=== PATIENT | female | born 1990 | race Caucasian/White ===

== ENCOUNTER 2017-12-12 13:27 | Emergency (ER) | payer OTHER ==
[2017-12-12 13:40] VITALS: RESP 18
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
--- NOTE | 2017-12-12 14:47 | XR ---
EXAMINATION TYPE: XR chest 2V DATE OF EXAM: 12/12/2017 COMPARISON: NONE TECHNIQUE: PA and lateral views submitted. HISTORY: Pain FINDINGS: The lungs are clear and there is no pneumothorax, pleural effusion, or focal pneumonia. Remote trau ma to the left clavicle. Deformity of the left lateral rib cage appears likely chronic. IMPRESSION: 1. No acute process.
--- NOTE | 2017-12-12 14:48 | XR ---
EXAMINATION TYPE: XR thoracic spine 2V DATE OF EXAM: 12/12/2017 COMPARISON: NONE HISTORY: Pain Alignment is anatomic. There is no compression deformities. Vertebral body height and disc interspa brenden are maintained. Curvature the spine noted. Chronic appearing deformity of the anterior margin fi rst rib. IMPRESSION: 1. No acute abnormality.
[2017-12-12 14:57] VITALS: BP 113/65; PULSE 65; TEMP 98
== END 2017-12-12 15:07 | disposition home or self-care (01) ==
LOC: EC 13:27
DX: M54.6 Pain in thoracic spine (principal)
CPT/HCPCS: 71046; 72070; 99283

== ENCOUNTER 2018-10-13 22:48 | Outpatient (CLI) | payer BC ==
[2018-10-13 23:52] VITALS: BP 128/79; PULSE 71; RESP 15; TEMP 97.3
--- NOTE | 2018-11-04 09:03 | P.MSEPDOC ---
Presenting Problems - Arrival Data Date of Arrival on Unit: 10/13/18 Time of Arrival on Unit: 22:48 Mode of Transport: Ambulatory - Complaint OB-Reason for Admission/Chief Complaint: Possible Onset of Labor Comment: Pt states she has been magnolia all day Medical History - Information : 1 Para: 0 Term: 0 : 0 Abortions: Spontaneous or Elective: 0 Number of Living Children: 0 - Gestational Age Gestational Age by NINFA (wks/days): 40 Weeks and 0 Days Review of Systems - Review of Systems Constitutional: No problems Breast: No problems ENT: No problems Cardiovascular: No problems Respiratory: No problems Gastrointestinal: No problems Genitourinary: No problems Musculoskeletal: No problems Neurological: No problems Skin: No problems Vital Signs - Temperature Temperature: 97.3 F Temperature Source: Temporal Artery Scan - Pulse Pulse Oximetery Pulse Rate: 71 Pulse Assessment Method: Automatic Cuff - Respirations Respiratory Rate: 15 Oxygen Delivery Method: Room Air O2 Sat by Pulse Oximetry: 96 - Blood Pressure Right Arm Blood Pressure: 128/79 Blood Pressure Mean: 95 Blood Pressure Source: Automatic Cuff Medical Screen Scoring (Pre) - Cervical Exam Dilation: 1-3 cm = 1 Membranes: Intact - Uterine Contractions Frequency: > 5 minutes apart = 1 Duration: N/A Intensity: N/A - Maternal Vital Signs Maternal Temperature: N/A Maternal Blood Pressure: N/A Signs of Preeclampsia: N/A Maternal Respirations: N/A - Maternal Trauma Maternal Trauma: N/A - Assessment - Baby A Baseline FHR: 120 Heart Rate - NICHD Category: Category I (Normal) = 0 NST: Reactive Position: N/A Station: N/A - Total Score - Baby A Total Score - Baby A: 2 - Total Score - Baby B Total Score - Baby B: 2 - Total Score - Baby C Total Score - Baby C: 2 - Level of Risk - Baby A Level of Risk - Baby A: Low (0-5) - Level of Risk - Baby B Level of Risk - Baby B: Low (0-5) - Level of Risk - Baby C Level of Risk - Baby C: Low (0-5) Physician Notification (Pre) - Physician Notified Physician Notified Date: 10/13/18 Physician Notified Time: 23:39 Physician/Practitioner Notifed:: Dr Barlow New Order Received: Yes Disposition - Disposition OB Disposition: Discharge to home Discharge Date: 10/13/18 Discharge Time: 23:45 I agree with the RN Medical Screening Exam: Yes Risk & Benefit of care provided described in d/c instruction: Yes Diagnosis: FALSE LABOR AT OR AFTER 37 COMPLETED WEEKS OF GESTATION
== END 2018-10-13 23:45 | disposition home or self-care (01) ==
LOC: FBPOP 22:48
PROVIDERS: ATTEND Obstetrics & Gynecology Obstetrics
DX: O47.1 False labor at or after 37 completed weeks of gestation (principal); Z3A.40 40 weeks gestation of pregnancy
CPT/HCPCS: 59025; 99213

== ENCOUNTER 2018-10-14 08:23 | Inpatient (IN) | payer BC ==
[2018-10-14] MEDS ORDERED: TERBUTALINE 1 MG/ML VIAL SQ PRN (11:14)
[2018-10-14] MEDS ORDERED: LIDOCAINE 0.5% (PF) 5 MG/ML (50 ML SDV) SQ PRN (11:14)
[2018-10-14] MEDS ORDERED: METHYLERGONOVINE 0.2 MG/ML 1 ML AMP IM PRN (11:14)
[2018-10-14] MEDS ORDERED: OXYTOCIN 10 UNIT/ML 1 ML VIAL IM PRN (11:14)
[2018-10-14] MEDS ORDERED: CARBOPROST TROMETHAMINE 250 MCG/ML 1 ML AMP IM PRN (11:14)
[2018-10-14] MEDS: LACTATED RINGERS 1,000 ML IV SCH ×3 (11:50→20:17)
[2018-10-14 11:52] LABS: Anisocytosis Slight; Basophils # (A) 0.1 k/uL (0-0.2); Basophils % (A) 0 %; Eosinophils # (A) 0.1 k/uL (0-0.7); Eosinophils % (A) 1 %; HCT 35.8 % (34.0-46.0); HGB 11.6 gm/dL (11.4-16.0); Hypochromasia Slight; Lymphocytes # (A) 2.9 k/uL (1.0-4.8); Lymphocytes % (A) 15 %; MCH 25.9 pg (25.0-35.0); MCHC 32.5 g/dL (31.0-37.0); MCV 79.6 fL (80.0-100.0); Mean Platelet Volume 9.6; Monocytes # (A) 0.9 k/uL (0-1.0); Monocytes % (A) 5 %; Neutrophils # (A) 14.5 k/uL (1.3-7.7); Neutrophils % (A) 77 %; Platelet Count 264 k/uL (150-450); RDW 16.4 % (11.5-15.5); WBC 18.9 k/uL (3.8-10.6)
[2018-10-14 12:07] VITALS: BMI 35.9
--- NOTE | 2018-10-14 12:39 | P.HPOB ---
History of Present Illness H&P Date: 10/14/18 Chief Complaint: Contractions for 24 hours This is a 28 year old 1 para 0 woman with an estimated due date of 10/13/2018 2 presents to labor and delivery triage with approximately 24 hours of painful contractions. She was evaluated throughout the night with contract ions however did not change her cervix therefore was discharged home. She really presents this morning with worsening complaints of contractions. She was 1 cm dilated at approximately 10 PM yesterday and progressed to 2+ centimeters over a couple of hours of observation here. She lives greater than 1 hour away and was extremely hesitant to be discharged. She is therefore admitted for management of latent labor possible early active labor and pain control. Her has been otherwise uncomplicated. She is known group B strep positive. Blood type O+, antibody screen negative, rubella immune, VDRL nonreactive, hepatitis B surface antigen negative, HIV negative, gonorrhea and clinic cultures negative, glucose tolerance testing within normal limits. Review of Systems All systems: negative Past Medical History Past Medical History: No Reported History Additional Past Medical History / Comment(s): heart murmur, clavicle fx. History of Any Multi-Drug Resistant Organisms: None Reported Past Surgical History: No Surgical Hx Reported Additional Past Surgical History / Comment(s): plate in jaw. (R) thumb surgery. Past Anesthesia/Blood Transfusion Reactions: No Reported Reaction Past Psychological History: No Psychological Hx Reported Smoking Status: Never smoker Past Alcohol Use History: None Reported Past Drug Use History: None Reported - Past Family History Father Family Medical History: GERD/Reflux, Hyperlipidemia, Hypertension Medications and Allergies Home Medications Medication Instructions Recorded Confirmed Type Lansoprazole [Prevacid] 30 mg PO DAILY 10/13/18 10/14/18 History Pnv No.95/Ferrous Fum/Folic AC 1 each PO DAILY 10/13/18 10/14/18 History [ Multivitamin Tablet] Allergies Allergy/AdvReac Type Severity Reaction Status Date / Time No Known Allergies Allergy Verified 10/14/18 08:35 Exam Vital Signs Temp Pulse Resp BP 10/14/18 10:21 97.9 F 82 16 129/78 Intake and Output 10/13/18 10/14/18 10/14/18 22:59 06:59 14:59 Other: Weight 110.223 kg This is a somewhat uncomfortable appearing, visibly gravid female. On cervical exam the cervix is 2 cm dilated 70% effaced and the vertex is in the -3 station. Cervix is posterior. There is some bloody show noted. heart tones are category 1 by external monitoring. She appears to be magnolia irregularly every 2-5 minutes. Results Result Diagrams: 10/14/18 11:40 Abnormal Lab Results - Last 24 Hours (Table) 10/14/18 Range/Units 11:40 WBC 18.9 H (3.8-10.6) k/uL MCV 79.6 L (80.0-100.0) fL RDW 16.4 H (11.5-15.5) % Neutrophils # 14.5 H (1.3-7.7) k/uL Assessment and Plan (1) 40 weeks gestation of Current Visit: Yes Status: Acute Code(s): Z3A.40 - 40 WEEKS GESTATION OF SNOMED Code(s): 37455860 (2) Labor, prolonged latent phase Current Visit: Yes Status: Acute Code(s): O62.0 - PRIMARY INADEQUATE CONTRACTIONS SNOMED Code(s): 085107474 (3) GBS (group B Streptococcus carrier), +RV culture, currently Current Visit: Yes Status: Acute Code(s): O99.820 - STREPTOCOCCUS B CARRIER STATE COMPLICATING SNOMED Code(s): 0693789611276 Plan: This is a 28-year-old 1 para 0 woman at 40 and one sevenths weeks gestation with prolonged latent labor. status is currently reassuring by external monitoring. Maternal vital signs are stable. She lives greater than 1 hour from the hospital. She has had minimal cervical warp changer the last several hours however is uncomfortable with contractions. I have recommended Stadol analgesia, fluid rehydration and rest. Should she advance into active labor or have rupture of membranes group B strep prophylactic antibiotics will be initiated. I discussed with the patient and her significant other the reasoning behind the plan. I do not believe intervention or induction of labor is indicated at this time and may potentially increase her risk of primary section. The patient understands and agrees with the plan.
[2018-10-14] MEDS: BUTORPHANOL 1 MG/ML 1 ML VIAL IV PRN ×2 (12:45→16:59)
--- NOTE | 2018-10-14 17:03 | P.PN ---
Progress Note - Text Progress Note Date: 10/14/18 Patient still irregularly magnolia every 2-7 minutes. She complains mainly of hip and back pain. heart tones are currently category 1. Pelvic examination reveals cervix 3 cm dilated, 50% effaced vertex in the -3 station, posterior. We discussed ongoing nonintervention. She and her family declined being discharged home for further expectant management. Should she have spontaneous rupture of membranes or active cervical change group B strep prophylactic antibiotics will be initiated. Continue expectant management.
[2018-10-14] MEDS ORDERED: fentaNYL (PF) 50 MCG/ML 5 ML AMP ONE (19:42)
[2018-10-14] MEDS ORDERED: SODIUM CHLORIDE 0.9% 100 ML BAG ONE (19:42)
[2018-10-14] MEDS ORDERED: ROPIVACAINE 5MG/ML 20ML VIAL ONE (19:42)
[2018-10-14] MEDS: PENICILLIN G POTASSIUM 5,000,000 UNIT in DEXTROSE 5% IN WATER 100 ML IVPB STA ×4 (20:12→20:13)
[2018-10-14] MEDS: PENICILLIN G POTASSIUM 2,500,000 UNIT in DEXTROSE 5% IN WATER 100 ML IVPB SCH ×2 (20:17)
[2018-10-15] MEDS: LACTATED RINGERS 1,000 ML IV SCH (05:03)
[2018-10-15] MEDS: PENICILLIN G POTASSIUM 2,500,000 UNIT in DEXTROSE 5% IN WATER 100 ML IVPB SCH ×4 (05:03→08:43)
[2018-10-15] MEDS ORDERED: WITCH HAZEL 1 EACH MED..PAD TOPICAL PRN (07:18)
[2018-10-15] MEDS ORDERED: LANOLIN CREAM 5 GM TUBE TOPICAL PRN (07:18)
[2018-10-15] MEDS ORDERED: diphenhydrAMINE 50 MG CAP PO PRN (07:18)
[2018-10-15] MEDS ORDERED: ACETAMINOPHEN TAB 325 MG TAB PO PRN (07:18)
[2018-10-15] MEDS ORDERED: ZOLPIDEM 5 MG TAB PO PRN (07:18)
[2018-10-15] MEDS ORDERED: BENZOCAINE/MENTHOL SPRAY 1 GM/SPRAY AEROSOL TOPICAL PRN (07:18)
[2018-10-15] MEDS ORDERED: diphenhydrAMINE 25 MG CAP PO PRN (07:18)
[2018-10-15] MEDS ORDERED: SIMETHICONE 80 MG CHEWABLE PO PRN (07:18)
[2018-10-15] MEDS ORDERED: diphenhydrAMINE 50 MG/ML 1 ML VIAL IVP PRN ×2 (07:18)
[2018-10-15] MEDS ORDERED: HYDROCORTISONE 2.5% RECTAL CREAM 30 GM TUBE RECTAL PRN (07:18)
[2018-10-15] MEDS ORDERED: OXYTOCIN 20 UNITS/1000 ML NS 1,000 ML IV SCH (07:30)
[2018-10-15] MEDS: IBUPROFEN 600 MG TAB PO PRN ×3 (07:39→22:40)
[2018-10-15] MEDS: SENNOSIDES-DOCUSATE SODIUM 1 EACH TAB PO SCH ×2 (07:39→22:40)
--- NOTE | 2018-10-15 08:09 | P.PROBDLV ---
Vaginal Delivery Note - . Vaginal Delivery Note: This is a 28-year-old white female 1 para 0 EDC 10/13/2018 at 40-2/7 weeks' gestation. Patient presented with spontaneous regular uterine contractions, in early labor yesterday. She was admitted through the night. Vital signs were stable. Blood type O positive, rubella status immune, group B strep cultures positive. Please see admitting history and physical for details. Through the night spontaneous amniorrhexis occurred with clear fluid. Epidural was requested and placed. She became completely dilated at 0649 hours. Perineal body was prepped and draped in usual sterile fashion. With excellent maternal expulsive efforts infant's head delivered occiput anterior and she restituted accordingly. There was a nuchal cord 1 that was reduced on the perineal body. The anterior or right shoulder was easily delivered from underneath the pubic symphysis at which time the oropharynx, nasopharynx, and external nares were bulb suctioned on the perineal body. Patient was officially delivered of a liveborn female at 0659 hours. Umbilical cord was doubly clamped and ligated, she was handed to waiting nurses for evaluation where scores of 9 and 9 at one and 5 minutes respectively were given. Placenta delivered spontaneously, it was inspected and noted to be intact with trivascular cord at 0703 hrs. Uterus is massaged. Inspection of cervix, vagina, perineum, periurethral, and perirectal areas revealed a small first- degree perineal laceration. This was easily repaired in the usual fashion using 3-0 Vicryl suture. Total estimated blood loss 250 mL's. Infant weighs 7 lbs. 10 oz. or 3455 g. Patient and her family are allowed to begin the bonding experience in the LDR.
[2018-10-15 21:03] VITALS: RESP 16
--- NOTE | 2018-10-16 07:44 | P.DS ---
Providers Date of admission: 10/14/18 11:10 Expected date of discharge: 10/16/18 Attending physician: Marilou Huang Primary care physician: Stated None Hospital Course: This is a 28-year-old white female 1 para 0 EDC 10/13/2018 at 40-2/7 weeks' gestation. Patient presented in early labor. Her course was significant for positive group B strep cultures, rubella status immune, blood type O positive. Please see admitting history and physical for details. Patient progressed slowly through the first stage of labor, spontaneous amniorrhexis occurred for clear fluid. She received an epidural per her request. She went on to vaginally deliver a liveborn female with scores of 9 and 9 at one and 5 minutes respectively. There was an estimated blood loss recorded of 250 mL's. There was a nuchal cord 1. Infant weighed 7 lbs. 10 oz. or 3455 g. There was a small second-degree spontaneous laceration easily repaired. Please see dictated delivery note for details. This morning the patient is doing well. She is voiding, and bleeding and passing flatus without difficulty. Vital signs are stable and she is afebrile. Fundus is firm and in the midline, symmetric and 18 week size. Extremities are negative for edema. Chest is clear in all webster. infant is doing well. Patient is judged to be in very good condition for discharge home. We have discussed options for contraception. She is reminded no intercourse tampons or douching. She will use [id number] Advil or Aleve, or ibuprofen as needed for pain. I've asked her to call me with any fevers shakes or chills, foul smelling or copious lochia, with the passage of large blood clots, with any pain not alleviated by [id number] products, or indeed with any concerns. infant will follow-up with chief drafter as per recommendations. Patient Condition at Discharge: Good Plan - Discharge Summary Discharge Rx Participant: No New Discharge Prescriptions: No Action Lansoprazole [Prevacid] 30 mg PO DAILY Pnv No.95/Ferrous Fum/Folic AC [ Multivitamin Tablet] 1 each PO DAILY Discharge Medication List Lansoprazole [Prevacid] 30 mg PO DAILY 10/13/18 [History] Pnv No.95/Ferrous Fum/Folic AC [ Multivitamin Tablet] 1 each PO DAILY 10/13/18 [History] Follow up Appointment(s)/Referral(s): Marilou Huang MD [STAFF PHYSICIAN] - 6 Weeks
[2018-10-16] MEDS: SENNOSIDES-DOCUSATE SODIUM 1 EACH TAB PO SCH ×2 (08:43→20:50)
[2018-10-16 09:43] LABS: Anisocytosis Slight; Basophils # (A) 0.1 k/uL (0-0.2); Basophils % (A) 0 %; Eosinophils # (A) 0.2 k/uL (0-0.7); Eosinophils % (A) 1 %; HCT 29.4 % (34.0-46.0); Hypochromasia Moderate; Lymphocytes # (A) 3.1 k/uL (1.0-4.8); Lymphocytes % (A) 14 %; MCH 26.1 pg (25.0-35.0); MCHC 32.1 g/dL (31.0-37.0); MCV 81.2 fL (80.0-100.0); Mean Platelet Volume 9.9; Monocytes # (A) 0.6 k/uL (0-1.0); Monocytes % (A) 3 %; Neutrophils # (A) 17.9 k/uL (1.3-7.7); Neutrophils % (A) 81 %; Platelet Count 209 k/uL (150-450); RBC 3.62 m/uL (3.80-5.40); WBC 22.1 k/uL (3.8-10.6)
[2018-10-16 09:47] LABS: HGB 9.5 gm/dL (11.4-16.0)
[2018-10-16] MEDS: IBUPROFEN 600 MG TAB PO PRN ×2 (15:11→20:49)
[2018-10-17] MEDS: IBUPROFEN 600 MG TAB PO PRN ×2 (08:03→14:41)
[2018-10-17] MEDS: SENNOSIDES-DOCUSATE SODIUM 1 EACH TAB PO SCH (08:04)
[2018-10-17 08:23] VITALS: BP 116/67; PULSE 71; TEMP 98.2
== END 2018-10-17 16:15 | disposition home or self-care (01) | DRG 807 ==
LOC: FBPOP 08:23 → 4FBP 11:10
PROVIDERS: ADMIT Obstetrics & Gynecology; ATTEND Obstetrics & Gynecology
PROC: 10E0XZZ Delivery of Products of Conception, External Approach (ICD-10-PCS; principal; 2018-10-15)
PROC: 0KQM0ZZ Repair Perineum Muscle, Open Approach (ICD-10-PCS; 2018-10-15)
DX: O69.81X0 Labor and delivery complicated by cord around neck, without compression, not applicable or unspecified (principal); Z37.0 Single live birth; O63.0 Prolonged first stage (of labor); O70.1 Second degree perineal laceration during delivery; O99.824 Streptococcus B carrier state complicating childbirth; O75.89 Other specified complications of labor and delivery; R01.1 Cardiac murmur, unspecified; K21.9 Gastro-esophageal reflux disease without esophagitis; O99.62 Diseases of the digestive system complicating childbirth; Z3A.40 40 weeks gestation of pregnancy; Z75.3 Unavailability and inaccessibility of health-care facilities; Z82.49 Family history of ischemic heart disease and other diseases of the circulatory system; Z83.79 Family history of other diseases of the digestive system
CPT/HCPCS: 59025; 84112; 85025; 86850; 86900; 86901; 99213

== ENCOUNTER 2020-07-20 21:59 | Emergency (ER) | payer BC ==
--- NOTE | 2020-07-21 01:22 | ED ---
General Adult HPI - General Chief complaint: Shortness of Breath Stated complaint: SOB,Chest Pain Time Seen by Provider: 07/21/20 01:19 Source: patient, RN notes reviewed Mode of arrival: wheelchair Limitations: no limitations - History of Present Illness Initial comments: Patient is a 29-year-old female that is 20 weeks that presents to emergency department complaining of shortness of breath. She notes she was sent by her primary care doctor to get her baby checked out. She notes that she's had shortness of breath was worried about upon and wasn't. Patient was well- appearing while sitting in wheelchair in no apparent distress or pain. She did have a mild cough but no other symptoms or complaints. She denied any chest pain headache nausea vomiting diarrhea constipation fever fatigue chills. - Related Data Home Medications Medication Instructions Recorded Confirmed Lansoprazole [Prevacid] 30 mg PO DAILY 10/13/18 10/14/18 Pnv No.95/Ferrous Fum/Folic AC 1 each PO DAILY 10/13/18 10/14/18 [ Multivitamin Tablet] Allergies Allergy/AdvReac Type Severity Reaction Status Date / Time nickel Allergy Intermediate Rash/Hives Verified 07/20/20 22:23 Review of Systems ROS Statement: Those systems with pertinent positive or pertinent negative responses have been documented in the HPI. ROS Other: All systems not noted in ROS Statement are negative. Past Medical History Past Medical History: No Reported History Additional Past Medical History / Comment(s): heart murmur, clavicle fx. History of Any Multi-Drug Resistant Organisms: None Reported Past Surgical History: Orthopedic Surgery Additional Past Surgical History / Comment(s): plate in jaw. (R) thumb surgery. Past Anesthesia/Blood Transfusion Reactions: No Reported Reaction Past Psychological History: No Psychological Hx Reported Smoking Status: Never smoker Past Alcohol Use History: None Reported Past Drug Use History: None Reported - Past Family History Father Family Medical History: GERD/Reflux, Hyperlipidemia, Hypertension General Exam Limitations: no limitations General appearance: alert, in no apparent distress Head exam: Present: atraumatic, normocephalic, normal inspection Eye exam: Present: normal appearance, PERRL, EOMI. Absent: scleral icterus, conjunctival injection, periorbital swelling Neck exam: Present: normal inspection. Absent: tenderness, meningismus, lymphadenopathy Respiratory exam: Present: normal lung sounds bilaterally. Absent: respiratory distress, wheezes, rales, rhonchi, stridor Cardiovascular Exam: Present: regular rate, normal rhythm, normal heart sounds. Absent: systolic murmur, diastolic murmur, rubs, gallop, clicks GI/Abdominal exam: Present: soft, normal bowel sounds. Absent: distended, tenderness, guarding, rebound, rigid Extremities exam: Present: normal inspection, full ROM, normal capillary refill. Absent: tenderness, pedal edema, joint swelling, calf tenderness Neurological exam: Present: alert, oriented X3, CN II-XII intact Psychiatric exam: Present: normal affect, normal mood Skin exam: Present: warm, dry, intact, normal color. Absent: rash Course Vital Signs 07/20/20 22:17 Temperature 98.8 F Pulse Rate 91 Respiratory 22 Rate Blood Pressure 114/73 O2 Sat by Pulse 97 Oximetry Medical Decision Making - Medical Decision Making 21-year-old female who is 20 weeks complaining of shortness of breath worried about possible pulmonary wasn't. Covid test ordered and was negative. Chest x-ray was ordered but patient declined due to radiation exposure to baby. Patient declined any other testing including heart sounds because she has hour drive home and follows up with Dr. Huang in a couple days. Case discussed with Dr. Gustafson, she can discharge home with follow-up to TECHN[facility] PROJECT LE[facility]. - Lab Data Lab Results 07/20/20 Range/Units 22:28 Coronavirus (PCR) Not Detected (Not Detectd) Disposition Clinical Impression: Upper respiratory tract infection Disposition: HOME SELF-CARE Condition: Stable Instructions (If sedation given, give patient instructions): Upper Respiratory Infection (ED) Additional Instructions: Please return to the Emergency Department if symptoms worsen or any other concerns. Follow-up with [facility] PROJECT LE[facility] as planned. Can take Tylenol for any fevers or muscle aches. Drink plenty of fluids rest. Is patient prescribed a controlled substance at d/c from ED?: No Referrals: None,Stated [Primary Care Provider] - 1-2 days Time of Disposition: 01:22
[2020-07-21 01:54] VITALS: BP 132/65; PULSE 88; RESP 20; TEMP 98.2
== END 2020-07-21 01:40 | disposition home or self-care (01) ==
LOC: EC 21:59
DX: O99.512 Diseases of the respiratory system complicating pregnancy, second trimester (principal); J06.9 Acute upper respiratory infection, unspecified; Z20.822 Contact with and (suspected) exposure to COVID-19; Z3A.20 20 weeks gestation of pregnancy
CPT/HCPCS: 87635; 93005; 99285

== ENCOUNTER 2020-09-07 14:46 | Outpatient (CLI) | payer BC ==
[2020-09-07 15:28] LABS: Appearance,Urine Cloudy (Clear); Bacteria,Urine Rare /hpf; Bilirubin,Urine 1+ (Negative); Blood,Urine Negative (Negative); Color,Urine Yellow; Glucose,Urine (UA) Negative (Negative); Ketones,Urine Trace (Negative); Leukocyte Esterase,Urine Negative (Negative); Mucus,Urine Many /hpf; Nitrite,Urine Negative (Negative); Protein,Urine 2+ (Negative); RBC,Urine 2 /hpf (0-5); Squamous Epithelial Cell,Urine 13 /hpf (0-4); WBC,Urine 3 /hpf (0-5)
[2020-09-07 15:37] LABS: Specific Gravity,Urine 1.047 (1.001-1.035)
[2020-09-07 16:22] VITALS: BP 121/67; PULSE 78; RESP 16; TEMP 97.2
--- NOTE | 2020-09-12 07:53 | P.MSEPDOC ---
Presenting Problems - Arrival Data Date of Arrival on Unit: 09/07/20 Time of Arrival on Unit: 14:46 Mode of Transport: Ambulatory - Complaint OB-Reason for Admission/Chief Complaint: Pain Comment: back pain since saturday, abd cramping since this am Medical History - Information : 3 Para: 1 Term: 1 : 0 Abortions: Spontaneous or Elective: 0 Number of Living Children: 1 - Gestational Age Gestational Age by NINFA (wks/days): 26 Weeks and 1 Days Review of Systems - Review of Systems Constitutional: No problems Breast: No problems ENT: No problems Cardiovascular: No problems Respiratory: No problems Gastrointestinal: No problems Genitourinary: No problems Musculoskeletal: No problems Neurological: No problems Skin: No problems Vital Signs - Temperature Temperature: 97.2 F Temperature Source: Temporal Artery Scan - Pulse Right Sitting Pulse Rate: 78 Pulse Assessment Method: Automatic Cuff - Respirations Respiratory Rate: 16 Oxygen Delivery Method: Room Air - Blood Pressure Right Arm Blood Pressure: 121/67 Blood Pressure Mean: 85 Blood Pressure Source: Automatic Cuff Medical Screen Scoring (Pre) - Cervical Exam Dilation: Exam Deferred Effacement: Exam Deferred Membranes: Intact - Uterine Contractions Frequency: N/A - Maternal Vital Signs Maternal Temperature: N/A Maternal Blood Pressure: N/A Signs of Preeclampsia: N/A Maternal Respirations: N/A - Maternal Trauma Maternal Trauma: N/A - Assessment - Baby A Baseline FHR: 125 Heart Rate - NICHD Category: Category I (Normal) = 0 - Total Score - Baby A Total Score - Baby A: 0 - Total Score - Baby B Total Score - Baby B: 0 - Total Score - Baby C Total Score - Baby C: 0 - Level of Risk - Baby A Level of Risk - Baby A: Low (0-5) - Level of Risk - Baby B Level of Risk - Baby B: Low (0-5) - Level of Risk - Baby C Level of Risk - Baby C: Low (0-5) Physician Notification (Pre) - Physician Notified Physician Notified Date: 09/07/20 Physician Notified Time: 16:03 New Order Received: Yes (D/c home) Disposition - Disposition OB Disposition: Physician follow up in office, Discharge to home Discharge Date: 09/07/20 Discharge Time: 16:11 I agree with the RN Medical Screening Exam: Yes Case reviewed; plan agreed upon as documented in EMR&OBIX.: Yes Comments: Patient was neither seen nor examined by me Diagnosis: FALSE LABOR BEFORE 37 COMPLETED WEEKS OF GEST, THIRD TRI
== END 2020-09-07 16:11 | disposition home or self-care (01) ==
LOC: FBPOP 14:46
PROVIDERS: ATTEND Obstetrics & Gynecology
DX: O47.02 False labor before 37 completed weeks of gestation, second trimester (principal); Z3A.26 26 weeks gestation of pregnancy; Z88.9 Allergy status to unspecified drugs, medicaments and biological substances
CPT/HCPCS: 81001; 99213

== ENCOUNTER 2020-12-08 19:58 | Outpatient (CLI) | payer BC ==
[2020-12-08 21:15] LABS: Appearance,Urine Clear (Clear); Bilirubin,Urine Negative (Negative); Blood,Urine Negative (Negative); Color,Urine Yellow; Glucose,Urine (UA) Negative (Negative); Ketones,Urine 2+ (Negative); Leukocyte Esterase,Urine Negative (Negative); Mucus,Urine Occasional /hpf; Nitrite,Urine Negative (Negative); Protein,Urine 1+ (Negative); RBC,Urine 1 /hpf (0-5); Specific Gravity,Urine 1.032 (1.001-1.035); Squamous Epithelial Cell,Urine 5 /hpf (0-4); Urobilinogen,Urine <2.0 mg/dL (<2.0); WBC,Urine 1 /hpf (0-5)
[2020-12-08 22:04] VITALS: BP 127/69; PULSE 98; RESP 16; TEMP 97
--- NOTE | 2021-01-07 12:23 | P.MSEPDOC ---
Presenting Problems - Arrival Data Date of Arrival on Unit: 12/08/20 Time of Arrival on Unit: 19:58 Mode of Transport: Ambulatory - Complaint OB-Reason for Admission/Chief Complaint: Possible Onset of Labor, Pain Comment: Patient presents to [facility] with reports of irregular cramping, low pelvic. pressure, and pain in her tail bone rated at a 3/10. Patient denies any complications. with herself or baby this . Medical History - Information : 3 Para: 1 Term: 1 : 0 Abortions: Spontaneous or Elective: 1 Number of Living Children: 1 - Gestational Age Gestational Age by NINFA (wks/days): 39 Weeks and 2 Days Review of Systems - Review of Systems Constitutional: No problems Breast: No problems ENT: No problems Cardiovascular: No problems Respiratory: No problems Gastrointestinal: No problems Genitourinary: No problems Musculoskeletal: No problems Neurological: No problems Skin: No problems Vital Signs - Temperature Temperature: 97.0 F Temperature Source: Temporal Artery Scan - Pulse Right Brachial Pulse Rate: 98 Pulse Assessment Method: Automatic Cuff - Respirations Respiratory Rate: 16 Oxygen Delivery Method: Room Air O2 Sat by Pulse Oximetry: 97 - Blood Pressure Right Arm Blood Pressure: 127/69 Blood Pressure Mean: 88 Blood Pressure Source: Automatic Cuff Medical Screen Scoring - Cervical Exam Dilation (cm): 1.5 Effacement (%): 50 Station: -2 Membranes: Intact - Assessment - Baby A Baseline FHR: 110 Heart Rate - NICHD Category: Category I (Normal) NST: Reactive Physician Notification - Physician Notified Physician Notified Date: 12/08/20 Physician Notified Time: 20:25 Physician: Chandra Vallecillo New Order Received: Yes - Notification Comment Comment: Dr. Vallecillo called with report on patient complaint of irregular contractions. nad lower pelvic pressure. Urine appears to be a dark straw color, order for urinalysis. received as well as oral hydration. FHT reactive with lower baseline which is known. based off of previous NST at office. Patient to be rechecked after an hour and sent home. if no change has been made. Called at 2130 with report of u/a patient approved for discharge. Maternal Triage Index - Maternal Triage Index Presenting for scheduled procedure w/no complaint: No - Stat/Priority 1 Stat Priority 1: No - Urgent/Priority 2 Urgent Priority 2: No - Prompt/Priority 3 Prompt Priority 3: No - Non-Urgent/Priority 4 Non-Urgent Priority 4: Yes Criteria Met for Priority 4: Patient presents to [facility] with reports of irregular cramping, low pelvic. pressure, and pain in her tail bone rated at a 3/10. Patient denies any complications. with herself or baby this . Disposition - Disposition OB Disposition: Discharge to home Discharge Date: 12/08/20 Discharge Time: 21:30 I agree with the RN Medical Screening Exam: Yes Physician's MSE Comment: I have neither seen nor examined the patient. Case reviewed; plan agreed upon as documented in EMR&OBIX.: Yes Diagnosis: RELATED CONDITIONS, UNSPECIFIED, THIRD TRIMESTER
== END 2020-12-08 21:38 | disposition home or self-care (01) ==
LOC: FBPOP 19:58
PROVIDERS: ATTEND Obstetrics & Gynecology
DX: O26.893 Other specified pregnancy related conditions, third trimester (principal); Z3A.39 39 weeks gestation of pregnancy
CPT/HCPCS: 59025; 81001; 99213

== ENCOUNTER 2020-12-15 20:40 | Outpatient (CLI) | payer BC ==
[2020-12-15 22:16] VITALS: BP 122/60; PULSE 71; RESP 16; TEMP 96.6
--- NOTE | 2021-01-07 12:24 | P.MSEPDOC ---
Presenting Problems - Arrival Data Date of Arrival on Unit: 12/15/20 Time of Arrival on Unit: 20:50 Mode of Transport: Ambulatory - Complaint OB-Reason for Admission/Chief Complaint: Possible Onset of Labor Comment: Patient arrives to triage with complaints of contractions for the past few. days, but within the past couple of hours they have increased in strength. Patient. states contractions are every 10-15 minutes apart. Medical History - Information : 3 Para: 1 Term: 1 : 0 Abortions: Spontaneous or Elective: 1 Number of Living Children: 1 - Gestational Age Gestational Age by NINFA (wks/days): 40 Weeks and 2 Days Review of Systems - Review of Systems Constitutional: No problems Breast: No problems ENT: No problems Cardiovascular: No problems Respiratory: No problems Gastrointestinal: No problems Genitourinary: No problems Musculoskeletal: No problems Neurological: No problems Skin: No problems Vital Signs - Temperature Temperature: 96.6 F Temperature Source: Temporal Artery Scan - Pulse Right Brachial Pulse Rate: 71 Pulse Assessment Method: Automatic Cuff - Respirations Respiratory Rate: 16 Oxygen Delivery Method: Room Air O2 Sat by Pulse Oximetry: 100 - Blood Pressure Right Arm Blood Pressure: 122/60 Blood Pressure Mean: 80 Blood Pressure Source: Automatic Cuff Medical Screen Scoring - Cervical Exam Dilation (cm): 1.5 Effacement (%): 50 Station: -2 Membranes: Intact - Uterine Contractions Frequency From (mins): 15 Frequency To (mins): 20 Intensity: Mild Resting: Soft to palpation - Assessment - Baby A Baseline FHR: 115 Heart Rate - NICHD Category: Category I (Normal) NST: Reactive Physician Notification - Physician Notified Physician Notified Date: 12/15/20 Physician Notified Time: 21:48 Physician: Chandra Vallecillo New Order Received: Yes - Notification Comment Comment: RN called Dr. Vallecillo and reported that cervical exam is unchanged from. previous exam. Reactive NST. Patient states her contractions have spread out and she is no longer uncomfortable. Patient to be discharged with instructions to return if symptoms worsen. Patient in agreement. Maternal Triage Index - Maternal Triage Index Presenting for scheduled procedure w/no complaint: No - Stat/Priority 1 Stat Priority 1: No - Urgent/Priority 2 Urgent Priority 2: No - Prompt/Priority 3 Prompt Priority 3: No - Non-Urgent/Priority 4 Non-Urgent Priority 4: Yes Criteria Met for Priority 4: 40 weeks 2 days early labor signs Disposition - Disposition OB Disposition: Discharge to home Discharge Date: 12/15/20 Discharge Time: 22:00 I agree with the RN Medical Screening Exam: Yes Physician's MSE Comment: I have neither seen nor examined the patient. Case reviewed; plan agreed upon as documented in EMR&OBIX.: Yes Diagnosis: RELATED CONDITIONS, UNSPECIFIED, THIRD TRIMESTER
== END 2020-12-15 22:00 | disposition home or self-care (01) ==
LOC: FBPOP 20:40
PROVIDERS: ATTEND Obstetrics & Gynecology
DX: O26.93 Pregnancy related conditions, unspecified, third trimester (principal); Z3A.40 40 weeks gestation of pregnancy
CPT/HCPCS: 59025; 99213

== ENCOUNTER 2020-12-17 08:17 | Inpatient (IN) | payer BC ==
[2020-12-17] MEDS: LACTATED RINGERS 1,000 ML IV SCH ×2 (10:30→21:15)
[2020-12-17] MEDS ORDERED: LIDOCAINE 0.5% (PF) 5 MG/ML (50 ML SDV) SQ PRN (10:33)
[2020-12-17] MEDS ORDERED: CARBOPROST TROMETHAMINE 250 MCG/ML 1 ML AMP IM PRN (10:33)
[2020-12-17] MEDS ORDERED: METHYLERGONOVINE 0.2 MG/ML 1 ML AMP IM PRN (10:33)
[2020-12-17] MEDS ORDERED: AMPICILLIN 2,000 MG in SODIUM CHLORIDE 0.9% 100 ML IVPB STA (10:33)
[2020-12-17] MEDS ORDERED: TERBUTALINE 1 MG/ML VIAL SQ PRN (10:33)
[2020-12-17] MEDS ORDERED: OXYTOCIN 10 UNIT/ML 1 ML VIAL IM PRN (10:33)
[2020-12-17] MEDS ORDERED: OXYTOCIN 30 UNITS/500 ML NS 30 UNIT in SALINE 1 500ML.BAG IV SCH ×2 (10:45→14:30)
[2020-12-17 11:02] LABS: Basophils # (A) 0.1 k/uL (0-0.2); Basophils % (A) 0 %; Eosinophils # (A) 0.1 k/uL (0-0.7); Eosinophils % (A) 1 %; HCT 41.4 % (34.0-46.0); HGB 13.6 gm/dL (11.4-16.0); Lymphocytes # (A) 2.6 k/uL (1.0-4.8); Lymphocytes % (A) 15 %; MCH 29.2 pg (25.0-35.0); MCV 88.7 fL (80.0-100.0); Mean Platelet Volume 10.5; Monocytes % (A) 6 %; Neutrophils # (A) 13.3 k/uL (1.3-7.7); Neutrophils % (A) 77 %; Platelet Count 242 k/uL (150-450); RBC 4.67 m/uL (3.80-5.40); WBC 17.4 k/uL (3.8-10.6)
[2020-12-17] MEDS ORDERED: ROPIVACAINE 5MG/ML 20ML VIAL ONE (12:43)
[2020-12-17] MEDS ORDERED: SODIUM CHLORIDE 0.9% 100 ML BAG ONE (12:43)
[2020-12-17] MEDS ORDERED: fentaNYL (PF) 50 MCG/ML 5 ML AMP ONE (12:43)
[2020-12-17] MEDS ORDERED: ROPIVACAINE 100 MG, fentaNYL (PF). 200 MCG in SODIUM CHLORIDE 0.9% 76 ML EPIDURAL ONE (13:00)
[2020-12-17] MEDS ORDERED: BENZOCAINE/MENTHOL SPRAY 1 GM/SPRAY AEROSOL TOPICAL PRN (14:30)
[2020-12-17] MEDS ORDERED: LANOLIN CREAM 5 GM TUBE TOPICAL PRN (14:30)
[2020-12-17] MEDS ORDERED: diphenhydrAMINE 50 MG/ML 1 ML VIAL IVP PRN ×2 (14:30)
[2020-12-17] MEDS ORDERED: SIMETHICONE 80 MG CHEWABLE PO PRN (14:30)
[2020-12-17] MEDS ORDERED: diphenhydrAMINE 25 MG CAP PO PRN (14:30)
[2020-12-17] MEDS ORDERED: HYDROCORTISONE 2.5% RECTAL CREAM 30 GM TUBE RECTAL PRN (14:30)
[2020-12-17] MEDS ORDERED: diphenhydrAMINE 50 MG CAP PO PRN (14:30)
[2020-12-17] MEDS ORDERED: ZOLPIDEM 5 MG TAB PO PRN (14:30)
--- NOTE | 2020-12-17 14:32 | P.PROBDLV ---
Vaginal Delivery Note - . Vaginal Delivery Note: This is a 30-year-old 011 that presented to labor and delivery at 40-4/7 weeks with complaints of regular contractions throughout the night. Patient was noted to be 2+ centimeters, 70% effaced. Patient was very uncomfortable with contractions. Patient was admitted to labor and delivery and IV antibiotics were begun for GBS prophylaxis. Patient underwent Pitocin augmentation of labor amniotomy was performed and clear fluid was obtained. Patient quickly became uncomfortable and requested epidural placement. Epidural was placed without difficulty by the anesthesia department. Patient quickly progressed to complete began pushing and had a normal spontaneous vaginal delivery of a viable male infant at 1415, weight of 7 lbs. 8 oz. and Apgars of 9 and 9 at one and 5 minutes respectively. Patient did have a loose nuchal cord at delivery that was delivered through on the perineum. After two-minute delay the umbilical cord was doubly clamped and cut and the was handed to the maternal abdomen. A spontaneous cry was noted at . On inspection the patient's vaginal vault no lacerations were appreciated. The placenta was delivered spontaneously intact with a three-vessel cord being noted. The uterus was noted to be firm and below the umbilicus. Estimated blood loss 200 mL. Patient and infant tolerated delivery well and are resting comfortably. All counts were noted to be correct 2 at the end of the delivery.
--- NOTE | 2020-12-17 14:34 | P.HPOB ---
History of Present Illness H&P Date: 12/17/20 Chief Complaint: IUP @ 40 4/7 weeks, Labor 30-year-old 3 para 1011 at 40-4/7 weeks that presents to labor and delivery with complaints of regular painful contractions. Patient states she contracted through the night, she has been in and out of triage multiple times prior cervical exam 1/thick/high. ( Patient is breathing through contractions. Patient has a history of 1 prior spontaneous vaginal delivery, uncomplicated or delivery.) Patient has been receiving routine care which has been essentially uncomplicated. Patient is a blood type of O+, group beta strep cultures are noted to be positive. Hepatitis B surface antigen is negative, HIV negative, RPR nonreactive. Review of Systems Constitutional: Reports fatigue, Denies chills, Denies fever Ears, nose, mouth and throat: Denies headache Cardiovascular: Reports leg edema Respiratory: Denies dyspnea Gastrointestinal: Denies constipation, Denies diarrhea, Denies nausea, Denies vomiting Genitourinary: Reports Past Medical History Past Medical History: No Reported History Additional Past Medical History / Comment(s): heart murmur, clavicle fx. History of Any Multi-Drug Resistant Organisms: None Reported Past Surgical History: Orthopedic Surgery Additional Past Surgical History / Comment(s): plate in jaw. (R) thumb surgery. Past Anesthesia/Blood Transfusion Reactions: No Reported Reaction Past Psychological History: No Psychological Hx Reported Smoking Status: Never smoker Past Alcohol Use History: None Reported Past Drug Use History: None Reported - Past Family History Father Family Medical History: GERD/Reflux, Hyperlipidemia, Hypertension Medications and Allergies Home Medications Medication Instructions Recorded Confirmed Type Pnv No.95/Ferrous Fum/Folic AC 1 each PO DAILY 10/13/18 12/17/20 History [ Multivitamin Tablet] Aspirin 81 mg PO DAILY 09/07/20 12/17/20 History Allergies Allergy/AdvReac Type Severity Reaction Status Date / Time nickel Allergy Intermediate Rash/Hives Verified 12/17/20 08:21 Exam Osteopathic Statement: *. No significant issues noted on an osteopathic structural exam other than those noted in the History and Physical/Consult. Vital Signs Temp Pulse Resp BP 12/17/20 09:54 97.0 F L 78 17 133/72 Intake and Output 12/16/20 12/17/20 12/17/20 22:59 06:59 14:59 Other: Weight 111.13 kg Targeted physical exam is performed in this date in general this a well- nourished well-developed female breathing through contractions, heart has regular rate and rhythm, abdomen is gravid, on cervical exam she is 2/70/-2 station vertex presentation, heart tones are noted to be category 1 and she is magnolia every 4-5 minutes. Results Result Diagrams: 12/17/20 10:30 Assessment and Plan (1) Active labor Current Visit: Yes Status: Acute Code(s): WII5837 - SNOMED Code(s): 901722428 (2) 40 weeks gestation of Current Visit: No Status: Acute Code(s): Z3A.40 - 40 WEEKS GESTATION OF SNOMED Code(s): 81925067 (3) GBS (group B Streptococcus carrier), +RV culture, currently Current Visit: No Status: Acute Code(s): O99.820 - STREPTOCOCCUS B CARRIER STATE COMPLICATING SNOMED Code(s): 9758996736861 Plan: This 30-year-old 011 at 40-4/7 weeks is admitted to labor and delivery. Antibiotics are begun given her positive group beta strep rectovaginal culture. A shunt is agreeable to amniotomy when appropriate. Epidural is discussed, will notify anesthesia. Anticipate spontaneous vaginal delivery later stay.
[2020-12-17] MEDS ORDERED: AMPICILLIN 1,000 MG in SODIUM CHLORIDE 0.9% 50 ML IVPB SCH (14:45)
[2020-12-17] MEDS: ACETAMINOPHEN TAB 325 MG TAB PO PRN (21:15)
[2020-12-17] MEDS: SENNOSIDES-DOCUSATE SODIUM 1 EACH TAB PO SCH (21:16)
[2020-12-18] MEDS: IBUPROFEN 600 MG TAB PO PRN ×3 (02:21→19:11)
[2020-12-18] MEDS: LACTATED RINGERS 1,000 ML IV SCH ×2 (02:48→17:14)
--- NOTE | 2020-12-18 05:54 | P.PNOBGVD ---
Subjective - Subjective Principal diagnosis: PPD 1 Interval history: Patient is doing well . She is ambulating and voiding without difficulty. She is tolerating a regular diet without nausea or vomiting. She states her pain is well-controlled. Babies currently in the nursery for IV antibiotics and monitoring. Patient reports: Reports appetite normal, Reports voiding normally, Reports pain well controlled, Reports ambulating normally [place]: doing well Objective - Latest Vital Signs Latest vital signs: Vital Signs Temp Pulse Resp BP Pulse Ox 12/18/20 04:00 97.7 F 55 L 15 119/75 97 12/18/20 00:00 98.1 F 69 15 108/69 96 12/17/20 20:00 98.9 F 86 15 143/71 97 12/17/20 16:27 98.0 F 71 18 104/57 97 12/17/20 15:57 65 18 116/64 97 12/17/20 15:27 97.6 F 66 18 114/68 12/17/20 15:12 60 18 101/60 12/17/20 14:57 65 18 116/65 12/17/20 14:42 82 18 112/59 12/17/20 14:27 97.8 F 75 18 108/58 96 12/17/20 12:25 97.0 F L 75 17 133/72 100 12/17/20 09:54 97.0 F L 78 17 133/72 Intake and Output 12/17/20 12/17/20 12/18/20 14:59 22:59 06:59 Intake Total 175.467 Balance 175.467 Intake: Intake, IV Titration 175.467 Amount Oxytocin 30 Units/500 ml 175.467 Ns 30 unit In Saline 1 500ml.bag @ Per Protocol IV .Q0M [facility] Rx#:[id number] Other: Voiding Method Toilet # Voids 1 Weight 111.13 kg - Exam Extremities: Present: normal Abdomen: Present: normal appearance, aortic enlargement Uterus: Present: normal - Labs Labs: Abnormal Lab Results - Last 24 Hours (Table) 12/17/20 Range/Units 10:30 WBC 17.4 H (3.8-10.6) k/uL Neutrophils # 13.3 H (1.3-7.7) k/uL Assessment and Plan (1) Active labor Current Visit: Yes Status: Acute Code(s): CUM4002 - SNOMED Code(s): 629581956 (2) 40 weeks gestation of Current Visit: No Status: Acute Code(s): Z3A.40 - 40 WEEKS GESTATION OF SNOMED Code(s): 71854158 (3) GBS (group B Streptococcus carrier), +RV culture, currently Current Visit: No Status: Acute Code(s): O99.820 - STREPTOCOCCUS B CARRIER STATE COMPLICATING SNOMED Code(s): 6012451429741 Plan: 30-year-old G2 now P2 status post normal spontaneous vaginal delivery. Patient is doing well . Plan to continue routine care.
[2020-12-18] MEDS: SENNOSIDES-DOCUSATE SODIUM 1 EACH TAB PO SCH ×2 (08:37→19:11)
[2020-12-18] MEDS: ACETAMINOPHEN TAB 325 MG TAB PO PRN (11:53)
[2020-12-19] MEDS: IBUPROFEN 600 MG TAB PO PRN ×2 (03:51→13:33)
[2020-12-19] MEDS: ACETAMINOPHEN TAB 325 MG TAB PO PRN (06:15)
--- NOTE | 2020-12-19 09:29 | P.DS ---
Providers Date of admission: 12/17/20 10:21 Expected date of discharge: 12/19/20 Attending physician: Marilou Huang Primary care physician: Stated None Hospital Course: This is a 30-year-old female 3 para 1011 EDC 12/13/2020 at 40-4/7 weeks' gestation who presented to labor and delivery in active spontaneous labor. was remarkable for blood type O+, rubella status immune, positive group B strep cultures. Please see dictated history and physical for details. Patient went on to deliver rather swiftly a liveborn male with scores of 9 and 9 at one and 5 minutes respectively. A nuchal cord 1 that was reduced. Infant weighed 7 lbs. 8 oz. or 06[birth year]23/2004 grams. Estimated blood loss 200 mL, intact perineal body, please see dictated delivery note for details. This morning the patient is doing well. She is voiding, and bleeding, passing flatus without difficulty. Vital signs are stable and she has remained afebrile. Breasts are not engorged, perineal body is clean and intact, minimal lochia rubra. No complaints of pain. Extremities are negative for pain or edema. Patient is judged be in very good condition for discharge home. Patient will follow-up with me in the office in 6 weeks. She is reminded no intercourse, tampons or douching. She will use [id number] Advil or Aleve, or Motrin as needed for pain. She will call with any fevers shakes or chills, foul smelling or copious lochia, with the passage of large blood clots, with any pain not alleviated by [id number] products, or indeed with any concerns. Replete discussed options for contraception and we will discuss this further in the office. Assessment: Doing well second post day Patient Condition at Discharge: Good Plan - Discharge Summary Discharge Rx Participant: No New Discharge Prescriptions: No Action Pnv No.95/Ferrous Fum/Folic AC [ Multivitamin Tablet] 1 each PO DAILY Aspirin 81 mg PO DAILY Discharge Medication List Pnv No.95/Ferrous Fum/Folic AC [ Multivitamin Tablet] 1 each PO DAILY 10/13/18 [History] Aspirin 81 mg PO DAILY 09/07/20 [History] Follow up Appointment(s)/Referral(s): Marilou Huang MD [STAFF PHYSICIAN] - 6 Weeks Discharge Disposition: HOME SELF-CARE
--- NOTE | 2020-12-19 09:50 | P.MSEPDOC ---
Presenting Problems - Arrival Data Date of Arrival on Unit: 12/17/20 Time of Arrival on Unit: 10:07 Mode of Transport: Ambulatory - Complaint OB-Reason for Admission/Chief Complaint: Possible Onset of Labor Comment: pt reports magnolia all night long, denies lof/vb, reports + fm and denies complications with Medical History - Information : 3 Para: 1 Term: 1 : 0 Abortions: Spontaneous or Elective: 1 Number of Living Children: 1 - Gestational Age Gestational Age by NINFA (wks/days): 40 Weeks and 4 Days - History Complications: GBS+ Review of Systems - Review of Systems Constitutional: No problems Breast: No problems ENT: No problems Cardiovascular: No problems Respiratory: No problems Gastrointestinal: No problems Genitourinary: No problems Musculoskeletal: No problems Neurological: No problems Skin: No problems Vital Signs - Temperature Temperature: 98.3 F Temperature Source: Oral - Pulse Right Brachial Pulse Rate: 71 Pulse Assessment Method: Pulse Oximetry - Respirations Respiratory Rate: 15 Oxygen Delivery Method: Room Air O2 Sat by Pulse Oximetry: 98 - Blood Pressure Right Arm Blood Pressure: 113/72 Blood Pressure Mean: 85 Blood Pressure Source: Automatic Cuff Medical Screen Scoring - Cervical Exam Dilation (cm): 2 Effacement (%): 70 Station: -2 Membranes: Intact - Uterine Contractions Frequency From (mins): 5 Frequency To (mins): 9 Duration From (seconds): 60 Duration To (seconds): 120 Intensity: Moderate Resting: Soft to palpation - Assessment - Baby A Baseline FHR: 110 Heart Rate - NICHD Category: Category I (Normal) NST: Reactive Physician Notification - Physician Notified Physician Notified Date: 12/17/20 Physician Notified Time: 09:40 New Order Received: Yes Maternal Triage Index - Non-Urgent/Priority 4 Non-Urgent Priority 4: Yes Criteria Met for Priority 4: dr barlow assessed pt in triage, pt will be admitted for augmentation of labor Disposition - Disposition OB Disposition: Admit I agree with the RN Medical Screening Exam: Yes Case reviewed; plan agreed upon as documented in EMR&OBIX.: Yes Comments: Patient was seen and managed by Dr. Barlow Diagnosis: LOUSE-BORNE TYPHUS
[2020-12-19 10:20] VITALS: BP 122/78; PULSE 66; RESP 16; TEMP 97.7
[2020-12-19] MEDS: SENNOSIDES-DOCUSATE SODIUM 1 EACH TAB PO SCH (10:21)
== END 2020-12-19 15:15 | disposition home or self-care (01) | DRG 807 ==
LOC: FBPOP 08:17 → 4FBP 10:21
PROVIDERS: ADMIT Obstetrics & Gynecology Obstetrics; ATTEND Obstetrics & Gynecology
PROC: 10E0XZZ Delivery of Products of Conception, External Approach (ICD-10-PCS; principal; 2020-12-17)
PROC: 10907ZC Drainage of Amniotic Fluid, Therapeutic from Products of Conception, Via Natural or Artificial Opening (ICD-10-PCS; 2020-12-17)
PROC: 3E033VJ Introduction of Other Hormone into Peripheral Vein, Percutaneous Approach (ICD-10-PCS; 2020-12-17)
DX: O69.81X0 Labor and delivery complicated by cord around neck, without compression, not applicable or unspecified (principal); Z37.0 Single live birth; O99.824 Streptococcus B carrier state complicating childbirth; Z3A.40 40 weeks gestation of pregnancy; Z79.82 Long term (current) use of aspirin; Z87.81 Personal history of (healed) traumatic fracture; Z86.79 Personal history of other diseases of the circulatory system; Z88.8 Allergy status to other drugs, medicaments and biological substances
CPT/HCPCS: 59025; 85025; 86850; 86900; 86901; 99213

== ENCOUNTER → 2024-05-16 | Outpatient (CLI) | payer BC ==
[2024-05-17 07:08] LABS: Basophils # (A) 0.09 X 10*3/uL (0.00-0.10); Basophils % (A) 1.2 %; Eosinophils # (A) 0.12 X 10*3/uL (0.04-0.35); Eosinophils % (A) 1.6 %; HCT 46.6 % (37.2-46.3); HGB 14.2 g/dL (12.0-15.0); Lymphocytes # (A) 2.13 X 10*3/uL (0.90-5.00); Lymphocytes % (A) 27.8 %; MCH 27.1 pg (27.0-32.0); MCHC 30.5 g/dL (32.0-37.0); MCV 88.9 FL (80.0-97.0); Mean Platelet Volume 12.9 FL (9.5-12.2); Monocytes # (A) 0.57 X 10*3/uL (0.20-1.00); Monocytes % (A) 7.4 %; NRBC Per 100 WBC 0 X 10*3/uL (0.00-0.01); Neutrophils # (A) 4.74 X 10*3/uL (1.80-7.70); Neutrophils % (A) 61.7 %; Platelet Count 320 X 10*3/uL (140-440); RBC 5.24 X 10*6/uL (4.10-5.20); RDW 13.2 % (11.5-14.5); WBC 7.67 X 10*3/uL (4.50-10.00)
[2024-05-17 11:17] LABS: ALT 14 U/L (8-44); AST 14 U/L (13-35); Albumin 4.3 g/dL (3.8-4.9); Albumin/Globulin Ratio 1.79 Ratio (1.60-3.17); Alkaline Phosphatase 91 U/L (41-126); BUN/Creat Ratio 10.22 Ratio (12.00-20.00); Blood Urea Nitrogen 9.2 mg/dL (9.0-27.0); Calcium 9.4 mg/dL (8.7-10.3); Carbon Dioxide 24.3 mmol/L (21.6-31.8); Chloride 105 mmol/L (96-109); Chol/HDL Ratio 4.93 Ratio; Globulin 2.4 g/dL (1.6-3.3); Glucose 83 mg/dL (70-110); LDL Cholesterol,Calculated 160.1 mg/dL (0.0-131.0); Potassium 4.7 mmol/L (3.5-5.5); Sodium 141 mmol/L (135-145); Total Bilirubin 0.3 mg/dL (0.3-1.2); Total Protein 6.7 g/dL (6.2-8.2)
== END | disposition home or self-care (01) ==
LOC: LABWHC1 09:57
PROVIDERS: ATTEND Family Medicine
DX: Z00.00 Encounter for general adult medical examination without abnormal findings (principal); E78.5 Hyperlipidemia, unspecified; E55.9 Vitamin D deficiency, unspecified; R63.5 Abnormal weight gain; Z79.899 Other long term (current) drug therapy
CPT/HCPCS: 36415; 80053; 80061; 82306; 84443; 85025